=== PATIENT | male | born 1980 | race Caucasian/White ===

== ENCOUNTER 2022-08-21 20:48 | Emergency (ER) | payer BC, SELFPAY ==
--- NOTE | ~2022-08-21 | CT_ITS ---
EXAMINATION: CT abdomen pelvis w con DATE: 08/22/2022 00:16 INDICATION: Low abdominal pain. Nausea and vomiting. TECHNIQUE: Computed tomography (CT) of the abdomen and pelvis was performed with 100 mL Omnipaque 350 intravenous contrast. Automated exposure control and iterative reconstruction technique were employe d. The dose-length product was 1377.35 mGy-cm. COMPARISON: None. FINDINGS: The visualized portions of the lung bases demonstrate mild atelectasis. No pleural effusion . The heart size is normal. No pericardial effusion. The liver, gallbladder, spleen, pancreas, adrena l glands, and kidneys are normal. The prostate is mildly enlarged. There is a left inguinal hernia co ntaining fat. There are no dilated loops of bowel. The appendix is normal. There are no pathologicall y enlarged lymph nodes. There is no free intraperitoneal fluid. There is mild thoracic and lumbar spo ndylosis. 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 IMPRESSION: 1. Left inguinal hernia containing fat. Reviewed, dictated and finalized at location A.
[2022-08-21 21:00] VITALS: BP 138/72; PULSE 102; RESP 20; TEMP 36.8; O2SAT 100
[2022-08-21 22:17] LABS: Basophils Absolute Auto 0.1 K/mm3 (0.0-0.1); Eosinophils Absolute Auto 0.3 K/mm3 (0-0.3); Hematocrit 50.2 % (42.0-52.0); Hemoglobin 16.3 g/dL (14.0-18.0); Immature Granulocyte Absolute 0.03 K/mm3 (0.00-0.031); Immature Granulocyte Percent A 0.3 % (0-0.5); Lymphocytes Absolute Auto 1.91 K/mm3 (0.9-3.2); Lymphocytes Percent Auto 20.3 % (18.3-44.2); Mean Corpuscular HGB Conc 32.5 g/dl (32-36); Mean Corpuscular Hemoglobin 27.6 pg (26-34); Mean Corpuscular Volume 84.9 fl (80-100); Mean Platelet Volume 8.8 fl (7.4-10.4); Monocytes Absolute Auto 0.5 K/mm3 (0.1-0.6); Monocytes Percent Auto 5.2 % (2.6-8.5); Neutrophils Absolute Auto 6.6 K/mm3 (1.3-6.7); Neutrophils Percent Auto 70.2 % (45.5-73.1); Platelet Count Result 236 k/mm3 (150-375); Red Blood Count 5.91 M/mm3 (4.6-6.20); Red Cell Distribution Width 13.9 % (11.5-14.5); White Blood Count 9.4 K/mm3 (4.5-10.0)
[2022-08-21 22:26] LABS: Prothrombin Time 13.1 Seconds (11.1-14.7)
[2022-08-21 22:27] LABS: Partial Thromboplastin Time 26.2 SECONDS (22.3-36.8)
[2022-08-21 22:28] LABS: Alanine Aminotransferase 32 U/L (6-50); Albumin Level 4.9 g/dL (3.5-5.1); Alkaline Phosphatase 46 U/L (38-126); Anion Gap 7 mmol/L (8-16); Aspartate Amino Transferase 28 U/L (17-59); Bilirubin,Total 0.7 mg/dL (0.2-1.3); Blood Urea Nitrogen 17 mg/dL (9-20); Calcium 9.4 mg/dL (8.4-10.2); Carbon Dioxide 32 mmol/L (22-30); Chloride 101 mmol/L (98-107); Estimated CRCL calculation 109 ml/min; Estimated Glomerular Filt Rate > 60; Glucose 90 mg/dL (65-110); Lipase 153 U/L (23-300); Potassium 4.1 mmol/L (3.4-5.0); Sodium 140 mmol/L (137-145)
[2022-08-21 23:33] VITALS: BP 130/81; PULSE 87; RESP 16; TEMP 36.7; O2SAT 100
[2022-08-21 23:38] VITALS: PULSE 88; RESP 16; O2SAT 96
[2022-08-21 23:45] VITALS: PULSE 92; RESP 16
[2022-08-21 23:46] VITALS: BP 130/79; PULSE 86; RESP 15
--- NOTE | 2022-08-21 23:51 | ED.GENADULT ---
HPI - General Adult General Chief complaint: Abdominal Pain Stated complaint: coffee ground emesis with abd/back pain Time Seen by Provider: 08/21/22 23:27 History of Present Illness HPI narrative: 42-year-old male presented the emergency department for evaluation of epigastric pain and concern vomiting coffee-ground's. Patient states he does have history of heartburn but no longer takes omeprazole. Patient states he does take Prilosec often. Patient reports he does have a prior history of gastritis. Patient reports he began having some intense heartburn last night and did have nausea and vomiting throughout the day today. Patient states he has had some back pain on his lateral flanks and lower spine. Patient does report he has an aggressive bowel motor. Patient states he did have some dark material in the emesis but denies any bright red blood. Patient denies any blood or dark tarry stools Related Data Allergies Allergy/AdvReac Type Severity Reaction Status Date / Time No Known Allergies Allergy Unverified 08/21/22 20:49 Review of Systems Review of Systems: All systems reviewed & are unremarkable except as noted in HPI and below PMFSH Family History Family History (Updated 01/17/14 @ 07:13 by DOCTOR UNKNOWN) Father Hypertension Social History Social History Alcohol intake: current Exam Narrative: APPEARANCE: Well appearing, no pain, no distress, well-nourished. HEAD: normocephalic, atraumatic. EYES: PERRLA/EOMI, conjunctivae clear. NOSE: Normal no drainage EARS:TMS clear with good light reflex. THROAT: Pharynx clear, no exudate. NECK: Supple. No adenopathy, no masses. RESPIRATORY: Airway patent, respirations nonlabored. Clear to auscultation bilaterally, no rales, rhonchi, wheezing. CARDIOVASCULAR: Regular rate and rhythm without murmurs rubs or gallops. ABDOMINAL: Soft, nontender, nondistended, normal bowel sounds Rectal exam: Hemoccult negative MUSCULOSKELETAL: Moves all extremities. Strength/ROM intact, No edema, No calf tenderness. NEURO: Alert. Cranial nerves II through XII intact. Grossly intact SKIN: Warm, dry. Normal Color Course Course Emergency Course: 42-year-old male presenting for evaluation of a possible gastric ulcer. Patient is afebrile and has no leukocytosis. Patient hemoglobin is 16.3. Patient's CMP is within normal limits. CT abdomen/ pelvis shows no acute abnormality. 2:21 AM patient has had no hematemesis in the emergency department. Patient was Hemoccult negative on the [facility]. Patient's hemoglobin is stable. Patient has had normal vital signs. No evidence of an acute bleed on the CT scan. Patient does have symptoms of gastritis the patient will be started on Protonix. Patient was encouraged of close follow-up with GI as outpatient. Patient and family were updated on the results of the work-up and plan for follow-up. All questions concerns were addressed. Vital Signs Vital signs: Vital Signs Temperature 98.2 F 08/21/22 21:00 Pulse Rate 102 H 08/21/22 21:00 Respiratory Rate 20 08/21/22 21:00 Blood Pressure 138/72 08/21/22 21:00 Pulse Oximetry 100 08/21/22 21:00 Oxygen Delivery Room Air 08/21/22 21:00 Temperature 98 F 08/22/22 02:42 Pulse Rate 79 08/22/22 02:42 Respiratory Rate 12 08/22/22 02:42 Blood Pressure 149/91 H 08/22/22 02:42 Pulse Oximetry 98 08/22/22 02:42 Oxygen Delivery Room Air 08/21/22 21:00 Medical Decision Making Vital Signs Vital Signs: Vital Signs Temperature 98.2 F 08/21/22 21:00 Pulse Rate 102 H 08/21/22 21:00 Respiratory Rate 20 08/21/22 21:00 Blood Pressure 138/72 08/21/22 21:00 Pulse Oximetry 100 08/21/22 21:00 Oxygen Delivery Room Air 08/21/22 21:00 Temperature 98 F 08/22/22 02:42 Pulse Rate 79 08/22/22 02:42 Respiratory Rate 12 08/22/22 02:42 Blood Pressure 149/91 H 08/22/22 02:42 Pulse Oximetry 98 08/22/22 02:42 Oxygen Delivery Room Air 08/21/22 21
[2022-08-22] VITALS (12 sets, daily range): BP systolic 113–184; BP diastolic 74–109; PULSE 79–98; RESP 12–28; TEMP 36.6; O2SAT 98–100
--- NOTE | 2022-08-22 00:20 | PC.NURSE ---
VORB per , confirmation tube for type and screen is not needed at this time.
[2022-08-22] MEDS: PANTOPRAZOLE SODIUM IV 40 MG VIAL IV PUSH (00:22)
[2022-08-22 02:51] LABS: Appearance Urine Clear (Clear); Bilirubin Urine Negative (Negative); Blood Urine Negative (Negative); Color Urine Yellow (Yellow); Glucose Urine UA Negative (Negative); Ketones Urine Negative (Negative); Leukocyte Esterase Ur Negative LEU/UL (Negative); Nitrate Urine Negative (Negative); Protein Urine 1+ mg/dL (Negative); Urobilinogen Urine 0.2 mg/dL (<2.0); pH Urine 6.5 (5.0-9.0)
[2022-08-22 02:53] LABS: Add Urine Microscopic? YES
[2022-08-22 02:54] LABS: RBC Urine 0-2 /hpf (0-2); WBC Urine 0-3 /hpf (0-3)
== END 2022-08-22 02:45 | disposition home or self-care (01) ==
PROVIDERS: Emergency Provider Emergency Medicine
DX: R10.13 Epigastric pain (principal)
CPT/HCPCS: 36415; 74177; 80053; 81001; 83690; 85025; 85610; 85730; 86850; 86900; 86901; 96374; 99284; C9113; Q9967